=== PATIENT | female | born 1945 | race Caucasian/White ===

== ENCOUNTER 2016-10-14 09:04 | Day surgery (SDC) | payer MEDICARE, BC ==
[2016-10-14] VITALS (7 sets, daily range): BP systolic 135–189; BP diastolic 64–100; PULSE 57–97; RESP 14–19; TEMP 98.1–98.7; O2SAT 96–98; Ht 152.4 cm; Wt 80.7 kg
[~2016-10-14] VITALS: Ht 152.4 cm; Wt 80.7 kg
[~2016-10-14 09:04] MED LIST: AMLO10TA57 PO; ASCO250T6 PO; ATEN-36 PO; CA C1TAB89 PO CHEW; CETI10CA19 PO; HYDR12.54 PO; LOSA100T44 PO; MELA3TAB30 PO; MULT1CAP32 PO; TIZA4TAB4 PO; [UNRECOGNIZED DRUG - CODE] PO
--- OUTSIDE RECORDS SUMMARY | 2016-10-14 09:08 | XMS REPORT | Summary of Care ---
Author Author Anjum Barber M.D. Unknown Address [address] [place] [address] [place] [address] Phone Unavailable Care Team Providers Care Graduate Teaching Assistant Name Role Phone Gurjit Villafana PP Unavailable Functional Status Functional Status Health Issues* Name Dates Details Functional status health issues are not documented Status: Cognitive Status Health Issues* Name Dates Details Cognitive status health issues are not documented Status: Problems Name Dates Details UTI (urinary tract infection) (599.0, N39.0) Status: Active Hematuria (599.70, R31.9) Status: Active Frequent urination (788.41, R35.0) Status: Active OAB (overactive bladder) (596.51, N32.81) Status: Active Sensory urge incontinence (788.31, N39.41) Status: Active Stress incontinence, female (625.6, N39.3) Status: Active Meatal stenosis (598.9, N35.9) Status: Active Medications Name Dates Details Allergy Relief 10 MG Oral Tablet TAKE 1 TABLET DAILY. * Started 19-Apr-2015 ActiveLosartan Potassium 100 MG Oral Tablet TAKE 1 TABLET DAILY. * Refills: 0 * Started 19-Apr-2015 ActiveAtenolol 100 MG Oral Tablet TAKE 1 TABLET DAILY. * Refills: 0 * Started 19-Apr-2015 ActiveTraMADol HCl - 50 MG Oral Tablet * Refills: 0 * Started 19-Apr-2015 ActiveAmLODIPine Besylate 10 MG Oral Tablet TAKE 1 TABLET DAILY. * Refills: 0 * Started 19-Apr-2015 ActiveTiZANidine HCl - 4 MG Oral Tablet * Refills: 0 * Started 19-Apr-2015 Active Allergies and Adverse Reactions Name Dates Details Cipro Status: Active Crestor Status: Active Keflex Status: Active Lipitor Status: Active Past Medical History Name Dates Details History of arthritis (V13.4, Z87.39) Status: Resolved History of depression (V11.8, Z86.59) Status: Resolved History of esophageal reflux (V12.79, Z87.19) Status: Resolved History of hypertension (V12.59, Z86.79) Status: Resolved History of inflammatory bowel disease (V12.79, Z87.19) Status: Resolved History of Meniere's disease (386.00, H81.09) Status: Resolved History of recurrent urinary tract infection (V13.02, Z87.440) Status: Resolved Procedures Procedure Dates Details History of Hysterectomy History of Neck Surgery History of Knee Arthroscopy With Medial And Lateral Meniscus Repair History of Ear Surgery History of Cystoscopy (For Therapy) Procedures not documented Immunization Name Dates Details Immunizations not documented Family History Grandmother* Name Dates Details Family history of malignant neoplasm of uterus (V16.49, Z80.49) Status: Active Grandfather* Name Dates Details Family history of Colon cancer (153.9, C18.9) Status: Active Family history of liver cancer (V16.0, Z80.0) Status: Active aunt* Name Dates Details Family history of malignant neoplasm of breast (V16.3, Z80.3) Status: Active Mother* Name Dates Details Family history of hypertension (V17.49, Z82.49) Status: Active Family history of CAD (coronary artery disease) (414.00, I25.10) Status: Active Family history of lung cancer (V16.1, Z80.1) Status: Active Father* Name Dates Details Family history of Aneurysm (442.9, I72.9) Status: Active Social History Name Dates Details Smoking Status* Never smoker Vital Signs Date Test Result Details 01-May-2015 13:16 BP Systolic 130 mm[Hg] Status: BP Diastolic 68 mm[Hg] Status: Heart Rate 58 /min Status: Height 60 in Status: Weight 170 lb Status: Body Mass Index Calculated 33.2 kg/m2 Status: Body Surface Area Calculated 1.74 m2 Status: Results Date Description Value Details Results not documented Plan of Care Planned Observations* Name Dates Details Planned Goals not documented Goal Planned Encounters* Appointment; Provider: Anjum Barber On 30-Oct-2015 13:15 Instructions * Instructions not documented Encounters Appointment; Anjum Barber Encounter Diagnosis: Problem not documented On 01-May-2015 13:15
--- OUTSIDE RECORDS SUMMARY | 2016-10-14 09:08 | XMS REPORT | Summary of Care ---
Author Author Anjum Barber M.D. Unknown Address [address] [place] [address] [place] [address] Phone Unavailable Care Team Providers Care Dispatch Lead Name Role Phone Anjum Barber M.D. Unavailable Unavailable Gurjit Villafana PP Unavailable Unavailable Unavailable Functional Status Functional Status Health Issues* Name Dates Details Functional status health issues are not documented Status: Cognitive Status Health Issues* Name Dates Details Cognitive status health issues are not documented Status: Problems Name Dates Details UTI (urinary tract infection) (599.0, N39.0) Status: Active Hematuria (599.70, R31.9) Status: Active Frequent urination (788.41, R35.0) Status: Active Sensory urge incontinence (788.31, N39.41) Status: Active Stress incontinence, female (625.6, N39.3) Status: Active Meatal stenosis (598.9, N35.9) Status: Active 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 * Quantity: 1 Refills: 0 Anjum Barber M.D.* Started 06-May-2015 ActiveCelecoxib 200 MG Oral Capsule TAKE 1 CAPSULE DAILY. * Refills: 0 Anjum Barber M.D.* Started 30-Oct-2015 ActiveOmeprazole 20 MG Oral Capsule Delayed Release TAKE 1 CAPSULE DAILY. * Refills: 0 * Started 30-Oct-2015 ActiveVitamin C 500 MG Oral Capsule TAKE 1 CAPSULE DAILY. * Refills: 0 * Started 30-Oct-2015 ActivePrenatal 6.75-0.2 MG Oral Tablet * Refills: 0 * Started 30-Oct-2015 ActiveVitamin D3 1000 UNIT Oral Capsule TAKE DIRECTED. * Refills: 0 * Started 30-Oct-2015 ActiveMelatonin 10 MG Oral Capsule * Refills: 0 * Started 30-Oct-2015 Active Allergies and Adverse Reactions Name Dates [...] smoker Vital Signs Date Test Result Details 30-Oct-2015 12:59 BP Systolic 153 mm[Hg] Status: BP Diastolic 80 mm[Hg] Status: Heart Rate 53 /min Status: Height 60 in Status: Weight 170 lb Status: Body Mass Index Calculated 33.2 kg/m2 Status: Body Surface Area Calculated 1.74 m2 Status: Results Date Description Value Details Results not documented Plan of Care Planned Observations* Name Dates Details Planned Goals not documented Goal Planned Encounters* Appointment; Provider: Anjum Barber On 04-Nov-2016 13:00 Instructions * Instructions not documented Encounters Appointment; Anjum Barber Encounter Diagnosis: Problem not documented On 30-Oct-2015 13:15 Appointment; Anjum Barber Encounter Diagnosis: Problem not documented On 01-May-2015 13:15
--- OUTSIDE RECORDS SUMMARY | 2016-10-14 09:08 | XMS REPORT | Continuity of Care Document ---
Author Author [facility] Organization [facility] Address Unknown Phone Unavailable Support Name Relationship Address Phone CAS KEITA MD Caregiver [facility] [address] [place] [address] [address] [place] [address] ASHLEY MONTENEGRO DO Caregiver [facility] [address] [place] [address] [phone] MIRIAM QUINTANA Next Of Kin [address] [place] [address] Insurance Providers Payer Name Policy Number Subscriber Name Relationship Medicare [id number] Makenna Quintana 18 Self [employer] [facility] [id number] Makenna Quintana 18 Self Advance Directives Directive Response Recorded Date/Time Ordered Resuscitation Status Full Code, unverified 07/17/14 10:27am Resuscitation Documents on File No 07/17/14 9:42am Problems No known problems or medical conditions. Medications Medication Dose Route Sig Days/Qty Instructions Order Date Discontinued Date Status Atenolol 50 Mg PO AM AND PM 11/20/09 01/22/10 Discontinued Rosuvastatin Calcium 10 Mg PO DAILY 04/17/09 11/02/09 Discontinued Dicyclomine Hcl 20 Mg PO DAILY 11/20/09 01/22/10 Discontinued Hydrocodone Bit/Acetaminophen 1 Tab PO NEEDED 02/06/10 06/15/11 Discontinued Triamterene/Hydrochlorothiazid 1 Udtab PO NEEDED 11/02/09 Discontinued Tramadol Hcl 50 Mg PO TWICE A DAY 11/20/09 01/22/10 Discontinued Bupropion Hcl 150 Mg PO DAILY 04/17/09 11/02/09 Discontinued Cetirizine Hcl 10 Mg PO DAILY 11/20/09 01/22/10 Discontinued Meloxicam DAILY 11/20/09 01/22/10 Discontinued Aspirin DAILY 11/20/09 01/22/10 Discontinued Methocarbamol Every 6 Hours 11/20/09 01/22/10 Discontinued Tramadol Hcl 50 Mg PO EVERY 4-6 HOURS 02/06/10 Active Citalopram Hydrobromide 20 Mg PO DAILY 02/06/10 06/15/11 Discontinued Buspirone Hcl 5 Mg PO DAILY 02/06/10 06/15/11 Discontinued Atenolol 100 Mg PO DAILY 03/24/11 Active Methocarbamol 100 Mg IJ 03/24/11 06/15/11 Discontinued Omeprazole 20 Mg PO DAILY 06/15/11 Active Amlodipine Besylate 5 Mg PO DAILY 06/15/11 Active Tizanidine HCl 1 Tab PO THREE TIMES A DAY 90 Qty 07/17/14 Active Losartan Potassium 1 Tab PO DAILY 30 Qty 07/17/14 Active Hydrochlorothiazide 1 Tab PO DAILY 30 Qty 07/17/14 Active Multivitamin 1 Tab PO DAILY 07/17/14 Active Fish Oil/Borage/Flax/Om3,6,9#1 1 Tab PO DAILY 07/17/14 Active Social History Social History Problem Response Recorded Date/Time Chewing Tobacco Status No 07/17/2014 9:32am Hx Substance Use No 07/17/2014 9:32am Hx Alcohol Use No 07/17/2014 9:32am Has the pt used tobacco in the last 12 months No 07/17/2014 9:32am Query Response Start Date Stop Date Smoking Status Never smoker Hospital Discharge Instructions No hospital discharge instructions. Plan of Care No plan of care. Functional Status No functional status results. Allergies, Adverse Reactions, Alerts Allergen Type Severity Reaction Status Last Updated nalbuphine HCl Adverse Reaction Severe HIGH BP Active 06/15/11 ciprofloxacin HCl Allergy Intermediate RASH Active 01/22/10 Cephalexin Monohydrate Allergy Unknown Active 01/22/10 rosuvastatin calcium Allergy Unknown ACHY Active 07/17/14 Atorvastatin Allergy Unknown Active 07/17/14 Immunizations Name Given Type Hx Influenza Vaccination Y FALL 2013 Historical Hx Pneumococcal Vaccination No Historical Hx Influenza Vaccination Y FALL 2013 Historical Hx Tetanus Diptheria Y OCTOBER 2006 SHE THINKS Historical Vital Signs Acute Vital Signs Vital Response Date/Time Temperature (Fahrenheit) 96.9 deg F (96.8 - 99.1) Temperature (Calculated Celsius) 36.13784 degrees C (36.0 - 37.3) Temperature Source Temporal Pulse Rate (adult) 57 bpm (60 - 100) Respiratory Rate 16 breaths/min (10 - 20) O2 Sat by Pulse Oximetry 96 % (90 - 100) Oxygen Delivery Method Room Air Blood Pressure 122/57 mm Hg Blood Pressure Source Automatic Cuff Height 5 ft 0 in Weight 169 lb Body Mass Index 33.0 kg/m^2 Results Test Source Date Result Interp. Ref. Range Comments Activated Partial Thromboplast Time January 22, 2010 11:35am 26.8 SEC N 24- 36 Alanine Aminotransferase (ALT/SGPT) February 01, 2010 4:25am 68 U/L H 9-52 Albumin February 01, 2010 4:25am 3.26 G/DL L 3.5-5.0 Albumin/Globulin Ratio February 01, 2010 4:25am 1.0 RATIO L 1.1-2.2 Alkaline Phosphatase February 01, 2010 4:25am 125 U/L N 38-126 Anion Gap September 30, 2012 4:04pm 10 MEQ/L N 5-15 Aspartate Amino Transf (AST/SGOT) February 01, 2010 4:25am 54 U/L H 14-36 B-Type Natriuretic Peptide January 22, 2010 11:35am 96 PG/ML N 15-100 BUN/Creatinine Ratio September 30, 2012 4:04pm 21 RATIO N 6-26 Band Neutrophils # September 30, 2012 4:04pm 0.2 T/MM3 - Band Neutrophils % September 30, 2012 4:04pm 1.0 % N 0-6 Basophils # (Auto) November 20, 2009 10:00am 0.0 T/MM3 N 0-0.2 Basophils # (Manual) February 01, 2010 4:25am 0.0 T/MM3 N 0-0.2 Basophils % (Manual) February 01, 2010 4:25am 0.0 % N 0-2 Basophils (%) (Auto) November 20, 2009 10:00am 0.1 % N 0-2 Blood Urea Nitrogen September 30, 2012 4:04pm 21.0 MG/DL H 7-17 CSF Color January 22, 2010 1:00pm Colorless - CSF Glucose January 22, 2010 1:00pm 73 MG/DL H 40-70 CSF RBC January 22, 2010 1:00pm 1 /MM3 H 0-0 CSF Total Protein January 22, 2010 1:00pm 38 MG/DL N 12-60 CSF Turbidity January 22, 2010 1:00pm Clear - CSF WBC January 22, 2010 1:00pm 0 /MM3 N 0-5 CSF West Nile Virus IgM Antibody January 22, 2010 1:24pm Ref lab rpt scanned - --- 01/24/10 0909 ---[facility] previously reported as: SEND OUT Calcium Level September 30, 2012 4:04pm 10.1 MG/DL N 8.4-10.2 Calculated Osmolality September 30, 2012 4:04pm 278 MOSM/KG N 261-280 Carbon Dioxide Level September 30, 2012 4:04pm 28 MEQ/L N 22-30 Chloride Level September 30, 2012 4:04pm 104 MEQ/L N 98-107 Creatinine September 30, 2012 4:04pm 1.0 MG/DL N 0.7-1.2 Eosinophils # (Auto) November 20, 2009 10:00am 0.1 T/MM3 N 0-0.5 Eosinophils # (Manual) September 30, 2012 4:04pm 0.2 T/MM3 N 0-0.5 Eosinophils % (Manual) September 30, 2012 4:04pm 1.0 % N 0-4 Eosinophils (%) (Auto) November 20, 2009 10:00am 0.8 % N 0-4 Globulin February 01, 2010 4:25am 3.3 G/DL N 2.4-3.6 Glucose Level September 30, 2012 4:04pm 129 MG/DL H 65-110 Group B Streptococcus Antigen January 22, 2010 1:00pm Negative - Hematocrit September 30, 2012 4:04pm 40.6 % N 36-46 Hemoglobin September 30, 2012 4:04pm 13.4 GM/DL N 12-16 Influenza Type B Antigen January 22, 2010 1:00pm Negative - Lymphocytes # (Auto) November 20, 2009 10:00am 1.9 T/MM3 N 1-4.8 Lymphocytes # (Manual) September 30, 2012 4:04pm 1.1 T/MM3 N 1-4.8 Lymphocytes % (Manual) September 30, 2012 4:04pm 7.0 % L 23-45 Lymphocytes (%) (Auto) November 20, 2009 10:00am 14.6 % L 23-45 Magnesium Level January 22, 2010 11:35am 2.6 MG/DL H 1.6-2.3 Mean Corpuscular Hemoglobin September 30, 2012 4:04pm 31.2 UUG N 26-34 Mean Corpuscular Hemoglobin Concent September 30, 2012 4:04pm 33.0 GM/DL N 31-37 Mean Corpuscular Volume September 30, 2012 4:04pm 94.6 UM3 N 80-100 Mean Platelet Volume September 30, 2012 4:04pm 9.6 UM3 N 9.4-12.4 Metamyelocytes # September 30, 2012 4:04pm 0.2 T/MM3 - Metamyelocytes % September 30, 2012 4:04pm 1.0 % H 0-0 Monocytes # (Auto) November 20, 2009 10:00am 1.0 T/MM3 H 0-0.8 Monocytes # (Manual) September 30, 2012 4:04pm 0.5 T/MM3 N 0-0.8 Monocytes % (Manual) September 30, 2012 4:04pm 3.0 % N 0-9.0 Monocytes (%) (Auto) November 20, 2009 10:00am 7.9 % N 0-9.0 N. meningitidis B/E. coli K1 January 22, 2010 1:00pm Negative - N. meningitidis C/W 135 January 22, 2010 1:00pm Negative - Neutrophils # (Auto) November 20, 2009 10:00am 9.8 T/MM3 H 1.8-7.7 Neutrophils # (Manual) September 30, 2012 4:04pm 13.1 T/MM3 H 1.8-7.7 Neutrophils % (Manual) September 30, 2012 4:04pm 87.0 % H 33-66 Neutrophils (%) (Auto) November 20, 2009 10:00am 76.6 % H 33-66 Platelet Count September 30, 2012 4:04pm 328 T/MM3 N 130-400 Potassium Level September 30, 2012 4:04pm 5.0 MEQ/L N 3.6-5 Prothromb Time International Ratio January 22, 2010 11:35am 1.22 H 0.86- 1.10 THERAPUTIC RANGE=2.00-3.00 FOR ANTI-THROMBOSIS THERAPUTIC RANGE=2.50- 3.50 FOR IMPLANTED VALVE RDW Standard Deviation September 30, 2012 4:04pm 43.5 FL N 36.9-50.2 Red Blood Count September 30, 2012 4:04pm 4.29 M/MM3 N 4.00-5.20 Rickettsia Ab ([facility] Spot Fever) January 22, 2010 1:24pm Ref lab rpt scanned - --- 07/23/10 0909 ---HANANE previously reported as: SEND OUT Sodium Level September 30, 2012 4:04pm 142 MEQ/L N 134-144 Streptococcus pneumoniae Antigen January 22, 2010 1:00pm Negative - Total Bilirubin February 01, 2010 4:25am 0.44 MG/DL N 0.20-1.30 Total Protein February 01, 2010 4:25am 6.6 G/DL N 6.3-8.2 Troponin I January 22, 2010 11:35am 0.123 ng/ml PH 0-0.12 Urine Amorphous Urates January 22, 2010 11:45am Few - Has specimen been collected/obtained? Y Urine Bacteria March 26, 2010 3:44pm 3+ H - Urine Bilirubin March 26, 2010 3:44pm Negative - Urine Blood March 26, 2010 3:44pm 2+ H - Urine Coarse Granular Casts January 22, 2010 11:45am 20-30 /LPF - Has specimen been collected/obtained? Y Urine Collection Type January 31, 2010 8:15pm Voided - COMMENT C/S INDICATEDHas specimen been collected/obtained? Y Urine Color March 26, 2010 3:44pm Yellow - Urine Culture Indicated March 26, 2010 3:44pm Cult set up - Urine Glucose (UA) March 26, 2010 3:44pm Negative - Urine Ketones March 26, 2010 3:44pm Negative - Urine Leukocyte Esterase March 26, 2010 3:44pm 1+ H - Urine Nitrite March 26, 2010 3:44pm Negative - Urine Protein March 26, 2010 3:44pm Trace H - Urine RBC March 26, 2010 3:44pm 5-10 /HPF H - Urine Specific Currie March 26, 2010 3:44pm 1.020 - Urine Squamous Epithelial Cells January 31, 2010 8:15pm Moderate - COMMENT C/S INDICATEDHas specimen been collected/obtained? Y Urine Turbidity March 26, 2010 3:44pm Slt cldy - Urine Urobilinogen March 26, 2010 3:44pm Normal EU/DL - Urine WBC March 26, 2010 3:44pm 10-20 /HPF H - Urine Yeast January 31, 2010 8:15pm 1+ H - COMMENT C/S INDICATEDHas specimen been collected/obtained? Y Urine pH March 26, 2010 3:44pm 6.0 - White Blood Count September 30, 2012 4:04pm 15.1 T/MM3 H 4.5-11.0 West Nile Virus IgG/IgM Antibody January 22, 2010 1:24pm Ref lab rpt scanned - --- 01/24/10908 ---WE[facility] previously reported as: SEND OUT Neisseria meningitidis A/Y Antigen January 22, 2010 1:00pm Negative - Lab Scanned Report September 30, 2012 11:14pm LAB TEST FORM REQUEST [id number] - EKG June 16, 2008 9:06am Complete - Glomerular Filtration Rate Calc September 30, 2012 4:04pm 55 - Clostridium difficile Toxin (PCR) February 03, 2010 12:00am Negative - If Toxin A is clinically indicated, treat accordingly. Blood Culture Blood January 22, 2010 11:35am NO GROWTH AFTER 5 DAYS Gram Stain Cerebral Spinal Fluid January 22, 2010 1:00pm Urine Culture Urine, Clean Catch Voided March 26, 2010 5:00pm Alpha- Hemolytic Streptococcus Name: MAKENNA QUINTANA Unit #: [id number] : 1945 Sex: F Loc / Svc: ED DOS: 01/22/10 Signed Report #: [id number] DIAGNOSTIC IMAGING REPORT TYPE OF EXAM: CT HEAD W/O CONTRAST Dictated By: BERENICE HILL MD COMPARISON None PROCEDURE Noncontrasted images were made from the base of the skull through the vertex and reviewed in brain and bone windows. FINDINGS Examination demonstrates what appears to be prior surgery in the right mastoid. There is opacification of some of the air cells in the left mastoid. Paranasal sinuses appear unremarkable. No bone erosion is seen. Orbits appear normal. Intracranially, the ventricular system is normal. Sulci show no abnormality. No mass effect. No intracranial hemorrhage. There is a small lacunar infarct in the left internal capsule. Age of this is indeterminate. IMPRESSION 1. Small left lacunar infarct. 2. Prior right mastoidectomy. 3. Changes suggesting mastoiditis on the left. Report was called to the emergency room at the time of dictation. Procedures Procedure Status Date Provider(s) Cataract surgery completed 07/18/14 CAS KEITA MD Encounters Encounter Location Date/Time Registered Clinic 04/30/14 2:56pm Departed Emergency Room 01/22/10 10:50am
--- OUTSIDE RECORDS SUMMARY | 2016-10-14 09:08 | XMS REPORT | Summary of Care ---
Author Author Anjum Barber M.D. Unknown Address [address] [place] [address] [place] [address] Phone Unavailable Care Team Providers Care Electromechanical Equipment Assembler Name Role Phone Gurjit Villafana PP Unavailable [...]
[2016-10-14] MEDS: PHENYLEPHRINE 2.5% EYE DROPS 5ml RIGHT EYE SCH ×3 (09:57→10:14)
[2016-10-14] MEDS: LIDOCAINE 1% (10mg/ml) 2ml SDV INJ ONE ×2 (09:57→10:32)
[2016-10-14] MEDS: CYCLOPENTOLATE 1% EYE DROPS 2 ML BOTTLE RIGHT EYE SCH ×3 (09:58→10:14)
[2016-10-14] MEDS: POLYMYXIN B SULFATE/TRIMETHOPRIM EYE DROPS 10 ML BOTTLE RIGHT EYE PRN ×3 (09:58→10:14)
[2016-10-14] MEDS: TROPICAMIDE 1% EYE DROPS 3ml RIGHT EYE SCH ×3 (09:58→10:14)
--- NOTE | 2016-10-14 10:03 | ANESPREOP ---
Anesthesia Record Date and Time DATE: 10/14/16 TIME: 09:59 Pre-Op Diagnosis right eye cataract Proposed Surgical Procedure CATARACT EXTRACTION WITH IOL OD NPO since: mn Allergies: Coded Allergies: ciprofloxacin HCl (Verified Allergy, Intermediate, RASH, 10/14/16) Cephalexin Monohydrate (Verified Allergy, Unknown, 10/14/16) atorvastatin (Unverified Allergy, Unknown, 10/14/16) rosuvastatin calcium (Verified Allergy, Unknown, ACHY, 10/14/16) nalbuphine HCl (Verified Adverse Reaction, Severe, HIGH BP, 10/14/16) Ht/Wt/BMI Height: 5 ' 0.00 " Weight: 80.700 kg BMI: 34.8 kg/m2 Vital Signs Date Time Temp Pulse Resp B/P Pulse Ox O2 Delivery O2 Flow Rate FiO2 10/14/16 09:24 98.7 57 16 164/79 97 Room Air Medications Inpatient Medications Current Medications Medications (Trade) Dose Ordered Sig/Jamie Start Time Stop Time Status Last Admin Dose Admin Cyclopentolate HCl (Cyclate 1%) 1 drop Q5M 10/14/16 17:00 10/14/16 17:11 10/14/16 09:58 1 DROP Tropicamide (Mydriacyl 1% Eye Drops) 1 drop Q5M 10/14/16 17:00 10/14/16 17:11 10/14/16 09:58 1 DROP Phenylephrine HCl (Simon-Synephrine 2.5% Eye Drops) 1 drop Q5M 10/14/16 17:00 10/14/16 17:11 10/14/16 09:57 1 DROP Polymyxin/ Trimethoprim Sulfate (Polytrim Eye Drops) 1 drop Q5MIN PRN 10/14/16 10:00 UNV 10/14/16 09:58 1 DROP Amlodipine Besylate (Norvasc) 10 Mg Tablet, 5 MG PO DAILY, (Reported) Ascorbic Acid (Vitamin C) 250 Mg Tab.chew, 2 TAB PO DAILY, (Reported) Atenolol (Atenolol) 25 Mg Tablet, 1 TAB PO DAILY, (Reported) Ca Carbonate/Vitamin D3/Vit K (Calcium + D Soft Chewable Tab) 1 Each Tab.chew, 2 TAB PO CHEW DAILY, (Reported) Cetirizine HCl (Zyrtec) 10 Mg Capsule, 1 CAP PO DAILY, (Reported) Hydrochlorothiazide (Hydrochlorothiazide) 12.5 Mg Tablet, 1 TAB PO DAILY, ( Reported) Losartan Potassium (Losartan Potassium) 100 Mg Tablet, 1 TAB PO DAILY, (Reported ) Melatonin (Melatonin) 3 Mg Tablet, 1 TAB PO HS, (Reported) Multivitamin (Multivitamins) 1 Each Capsule, 1 TAB PO DAILY, (Reported) Tizanidine HCl (Tizanidine HCl) 4 Mg Tablet, 1 TAB PO TID, (Reported) Tramadol Hcl (Ultram Er) 200 Mg Tab.sr.24h, 50 MG PO Q4-6H, (Reported) Currently on Beta Carlos: Yes Beta Carlos Last Taken: 0800 this am Medical/Surgical History Anesthesia PMH: Reports: *Hypertension, Arthritis, Pneumonia (2010), Reflux ( RESOLVED ), Denies: *Angina, *Diabetes, *Dyspnea, *CA, Anesthesia Reactions (NO AIRWAY ISSUES), Asthma, Blood Transfusion Reac, CHF, COPD, CVA/Stroke/TIA, Cancer, Clotting Problems, Deep Vein Thrombosis, Glaucoma, Headaches, Hepatitis , Hiatal Hernia, Malignant Hyperthermia, Renal Disease, Rheumatic Fever, Seizures, Sleep Apnea, Thyroid Disease, Tuberculosis Smoking Status: Never smoker Has pt. smoked today?: No Use Chewing Tobacco?: No Second Hand Exposure: No Substance Use Type: does not use Alcohol Intake: none HX of Last Menstrual Period: HYST. Past Surgical History Orthopedic Surgeries: Yes - CTR, NISHI.KNEE SCOPE, BACK SURGERY, NECK FUSION Abdominal Surgeries: - HYSTERECTOMY Genitourinary Surgeries: Cardiac Surgeries: Endocrine Surgeries: Reproductive Surgeries: Yes - HYSTERECTOMY; D&C Neurological Surgeries: Ear Surgeries: Yes - X3 SHUNTS FOR EAR Nose Surgeries: Throat Surgeries: Other Surgeries: Yes - NECK FUSION 4-5 Anesthesia Adverse Reactions: FOUND none Family Hx of Anesthesia Advers: none Hx of Motion Sickness: No Pertinent Findings EKG Rhythm: Sinus Rhythm Physical Exam Respiratory: Bilat breath sounds equal, Lungs clear Cardiovascular: FOUND Regular rate, rhythm Airway Assessment Mallampati Score: II TMD: 3 Fingerbreadths Overall Assessment: No Airway Concerns ASA: 2 Plan Anesthesia Plan: MAC Discussion Discussed risks/options/alternatives of anesthesia and questions answered. Patient consents. Nursing pain assessment noted. Attestation Statement Prior to the delivery of any anesthetic medication, I examined the patient, developed the plan, obtained the patient's consent and discussed the risk and benefits of the procedure with the patient/guardian. FLOYD JACKSON CRNA Oct 14, 2016 10:03
[2016-10-14] MEDS ORDERED: MIDAZOLAM 2mg/2ml INJECTION ONE (11:12)
[2016-10-14] MEDS ORDERED: SALINE FLUSH 10ml SYRINGE ONE ×2 (11:12→11:25)
[2016-10-14] MEDS ORDERED: METOPROLOL 5mg/5ml INJECTION IV ONE (11:25)
--- NOTE | 2016-10-14 12:07 | NUR ---
HEART RATE CONTACT PERSON REPORTS HEART WENT INTO RAPID RATE OFF AND ON IN OR. EKG HOOKED UP TO TRY TO CATCH RAPID HEART RATE.
--- NOTE | 2016-10-14 12:13 | NUR ---
HEART RATE GARMENT PARTS CUTTER MACHINE OBSERVES HEART RATE-EKG DONE. NO RAPID HEART RATE AT THIS POINT
--- NOTE | 2016-10-14 12:27 | ANESPO ---
Post-Op Note Date 10/14/16 Time: 12:21 Status Pt Participated in Evaluation: Pt participated in person Vital Signs Date Time Temp Pulse Resp B/P Pulse Ox O2 Delivery O2 Flow Rate FiO2 10/14/16 12:00 98.1 80 16 189/90 98 Room Air Respiratory Function: Airway patent Cardiovascular Function: Regular pulse Telemetry Pattern: Afib Mental Status: Alert/oriented Pain Level Intensity: 0 Hydration: IV infusing Complications during Recovery None apparent Post-Anesthesia Notes New onset AFIB with runs of PVC's EKG done in SCU. called and talked to Dr. Villafana to see patient in office at 1330. Follow-Up Instructions Instructions Per Surgeon JENNIFER PIERCE CRNA Oct 14, 2016 12:25
--- NOTE | 2016-10-14 12:32 | NUR ---
HEART RATE SUPERVISOR [employer] VISITS W PT AND PT'S ABOUT HEART RATE. PT WILL GO TO DR MONTENEGRO'S OFFICE AT 1:30. WILL WATCH HER HERE UNTIL THEN.
--- NOTE | 2016-10-14 12:50 | NUR ---
DISMISSAL PT STAYING TO BE OBSERVED FOR CARDIAC RYTHYMS UNTIL HER DR APPT AT 1330. PT DENIES ANY CHEST, BACK OR ARM DISCOMFORT. HAD A HEADACHE WHICH IS RESOLVING AFTER EATING.
[2016-10-14] MEDS ORDERED: ACETYLCHOLINE (MIOCHOL-E) OCULAR SYSTEM IO ONE (16:17)
[2016-10-14] MEDS ORDERED: EPINEPHRINE 1mg/ml Pres.Free vl IO ONE (16:17)
[2016-10-14] MEDS ORDERED: BRIMONIDINE 0.2% EYE DROPS 5ml BOTH EYES ONE (16:17)
[2016-10-14] MEDS ORDERED: NS FOR INJ. 20 ML VIAL INJ ONE (16:19)
[2016-10-14] MEDS ORDERED: PrednisoLONE 1% EYE DROPS 5ml RIGHT EYE ONE (16:19)
[2016-10-14] MEDS ORDERED: PILOCARPINE 2% RIGHT EYE ONE (16:19)
[2016-10-14] MEDS ORDERED: TETRACAINE 0.5% EYE DROPS 4ml BOTTLE OP ONE (16:19)
[2016-10-14] MEDS ORDERED: LIDOCAINE 1% (10mg/ml) 30ml SDV IJ ONE (16:19)
[2016-10-14] MEDS ORDERED: VANCOMYCIN 500 MG INJECTION IO ONE (16:19)
[2016-10-14] MEDS ORDERED: LIDOCAINE 3.5% EYE GEL PF 1ml OP ONE (17:00)
--- NOTE | 2016-10-15 23:04 | OPNOTEF ---
DATE OF OPERATION 10/14/2016 PREOPERATIVE AND POSTOPERATIVE DIAGNOSES Visually significant cataract, right eye. PROCEDURE Cataract extraction by phacoemulsification with insertion of posterior chamber intraocular lens, right eye. SURGEON Lazarus Tang M.D. DESCRIPTION OF PROCEDURE The patient was given topical ophthalmic dilating drops, 2.5% phenylephrine, 1% tropicamide, 1% Cyclopentolate, topical antibiotic drops Zymaxid and topical 2% Xylocaine gel q. 5 minutes x 3 prior to arrival to the OR into the right eye. In the OR, the area about the right eye was prepped and draped in the usual sterile fashion with topical Betadine and 5% Betadine eyedrops into the right eye. The procedure began and was done entirely under the operating microscope. A sterile lid speculum was placed into the right eye and removed at the end of the procedure. Using a 1.2-mm blade, two paracentesis side ports were made approximately 180 degrees apart. 1% preservative-free lidocaine was instilled into the eye followed by Viscoat. Using a 2.4-mm keratome, a temporal clear corneal incision was made. Using a cystotome and capsular rhexis forceps, an anterior capsulotomy was made. The lens nucleus was then loosened from surrounding cortical material by hydrodissection. The phacoemulsification handpiece was then introduced into the eye and the lens nucleus was successfully phacoemulsified using 14.24 CDE units of phacoemulsification power. Hydrodissection was done again to loosen cortical material from the capsule and the irrigation/aspiration handpieces were used to strip away all cortical material. The eye was then filled with Provisc and a Hoya lens, model #250, with a power of 19.0 diopters was inserted into the capsular bag of the right eye and centered. Viscoelastic was removed with the irrigation/aspiration handpieces. Then Miocol was instilled into the eye and the pupil came down to approximately 5.5 mm. This patient had very widely dilated pupil and some posterior pressure since apparently her blood pressure had gone up. The lens was noted to be in the capsular bag properly centered and located behind the iris. 1 mg of vancomycin was dissolved in 0.1 cc of normal saline and it was instilled into the eye. Incisions were hydrated to seal them, were tested, and noted to be watertight. Drops of Zymaxid, Pred Forte and Brimonidine were dropped onto the right eye and a shield taped over the eye, completing the procedure. Blood loss was minimal, less than 0.1 cc. There were no complications. The patient left the operating room in good condition. GARETH
== END 2016-10-14 13:24 | disposition home or self-care (01) ==
LOC: NSC 09:04
PROVIDERS: ATTEND Ophthalmology
DX: H25.811 Combined forms of age-related cataract, right eye (principal); I10 Essential (primary) hypertension; E78.00 Pure hypercholesterolemia, unspecified; M19.90 Unspecified osteoarthritis, unspecified site; H81.09 Meniere's disease, unspecified ear; Z79.899 Other long term (current) drug therapy; Z79.1 Long term (current) use of non-steroidal anti-inflammatories (NSAID); Z88.1 Allergy status to other antibiotic agents; Z88.8 Allergy status to other drugs, medicaments and biological substances; Z90.710 Acquired absence of both cervix and uterus
CPT/HCPCS: 66984; 93005; A9270; C1780; J0171; J2250; J3370

== ENCOUNTER 2017-10-05 13:56 | Inpatient (IN) ==
[2017-10-05] MEDS ORDERED: CEFTRIAXONE 1 G in NS 100 ML IV ONE (14:30)
[2017-10-05] MEDS: NS 1,000 ML IV SCH ×3 (16:16→19:50)
--- NOTE | 2017-10-05 17:37 | Internal Med History&Physical ---
Internal Medicine HPI Chief complaint: fever and lethargy with leukocytosis History of present illness: Makenna Flynn is a pleasant 72-year-old white female patient that I am well familiar with from my office practice. Usually she has no trouble walking or conversing or doing any of her activities of daily living. Her most recent lab was drawn through our office demonstrated dehydration. She called this morning needing to be seen due to her fever as well as significant weakness and chest discomfort. At that time she was indeed found to be dehydrated and also we noted that her white count was significantly elevated. At that point it was decided that she would be a direct admit for 23 hour observation with IV fluid hydration, antibiotics, and septic workup. Review of Systems - Constitutional Constitutional: Present: chills, daytime sleepiness, fatigue, fever(s), lethargy , malaise, weakness - Cardiovascular Cardiovascular: Present: chest pain, dyspnea on exertion. Absent: syncope - Respiratory Respiratory: Present: cough, dyspnea, dyspnea on exertion, chest congestion - Gastrointestinal Gastrointestinal: Absent: abdominal pain, change in bowel habits, coffee ground emesis, constipation, diarrhea, dyspepsia, dysphagia, early satiety - Genitourinary Genitourinary: Present: difficulty urinating - Musculoskeletal Musculoskeletal: Present: arthralgias, back pain, muscle weakness, myalgias - Neurological Neurological: Present: confusion. Absent: frequent falls, radicular pain, tremor(s) - Hematologic/Lymphatic Hematologic/Lymphatic: Absent: easy bleeding, easy bruising, lymphadenopathy - Allergic/Immunologic Allergic/Immunologic: Absent: tongue swelling, itchy eyes, seasonal rhinorrhea, urticaria PFSH Patient Stated Medical History Cataracts Yes: both Hearing Loss Yes Hypertension Yes Pneumonia Yes: twice in the past Hx Urinary Tract Infection Yes: past Other Musculoskeletal Yes: arthritis Clinic Medical History (Last Reviewed 02/01/17 @ 16:07 by Vicente Villafuerte MD) Arthritis (Acute Medical) Bleeding disorder (Acute Medical) Cataract (Acute Medical) High blood pressure (Acute Medical) High cholesterol (Acute Medical) Pneumonia (Acute Medical) Surgical History: Hysterectomy 1969, Neck (Spine) 1992, Carpal Tunnel 1998, Ear Shunt, Meniscus Knee, Family History: Family History (Last Reviewed 02/01/17 @ 16:07 by Vicente Villafuerte MD) Mother Cancer of lung Arthritis Father Aneurysm Maternal Grandmother Ovarian cancer Paternal Grandfather Heart failure - Social History Smoking status: Never smoker Substance use type: does not use Alcohol intake frequency: does not drink Household members: spouse Current occupational status: retired Medications Home Medications Medication Instructions Recorded Confirmed Type Tramadol Hcl (Ultram Er) 50 mg PO Q4-6H #0 02/06/10 10/05/17 History Amlodipine Besylate 5 mg PO BID #0 06/15/11 10/05/17 History Losartan Potassium 1 tab PO DAILY #30 07/17/14 10/05/17 History Tizanidine HCl 1 tab PO BID #90 07/17/14 10/05/17 History Tenormin (atenolol) 100 mg tablet 100 mg PO BID tab 02/01/17 10/05/17 History Allergies Allergy/AdvReac Type Severity Reaction Status Date / Time atorvastatin Allergy Unknown Verified 10/05/17 15:19 ciprofloxacin HCl Allergy Intermediate RASH Uncoded 10/05/17 15:19 Cephalexin Monohydrate Allergy Unknown Uncoded 10/05/17 15:19 rosuvastatin calcium Allergy Unknown ACHY Uncoded 10/05/17 15:19 nalbuphine HCl AdvReac Severe HIGH BP Uncoded 10/05/17 15:19 Exam Vital signs: Temperature 96.7 F L 10/05/17 14:07 Pulse Rate 73 10/05/17 14:07 Respiratory Rate 18 10/05/17 14:07 Blood Pressure 167/72 H 10/05/17 14:07 Pulse Oximetry 97 10/05/17 14:07 - Constitutional moderate distress, obese, disheveled, cooperative - Routine HEENT Exam Head: Present: normocephalic, atraumatic Eye: Present: EOMI, PERRL, conjunctivae pink. Absent: conjunctival icterus ENT: Present: oropharynx clear, nares patent. Absent: mucous membranes moist Nose: dry mucous membranes - Routine Neck Exam Present: supple. Absent: JVD, carotid bruit - Routine Chest/Breast/Axilla Exam Chest wall: Present: tenderness Axillae: Absent: lymphadenopathy - Routine Respiratory Exam Absent: accessory muscle use, CTA bilaterally - Routine Cardiovascular Exam Present: RRR, no murmur. Absent: S3, S4 - Routine Abdominal Exam Present: soft, normoactive bowel sounds, non distended, non tender. Absent: rebound, guarding, rigid - Routine Extremities Exam Absent: cyanosis, clubbing, edema - Routine Skin Exam Present: intact. Absent: cyanosis, erythema, mottling, petechiae, urticaria, jaundice - Routine Neurological Exam Present: oriented X3, CN II-XII intact. Absent: alert - Routine Psychiatric Exam Present: cooperative. Absent: normal affect Internal Medicine Results - Labs CBC & Chem 7: 10/05/17 15:10 10/05/17 15:10 Labs: Short CBC 10/05/17 Range/Units 15:10 WBC 18.1 H (4.5-11.0) T/MM3 Hgb 13.7 (12-16) GM/DL Hct 41.0 (36-46) % Plt Count 408 H (130-400) T/MM3 BMP 10/05/17 15:10 Sodium 140 Potassium 4.2 Chloride 99 Carbon Dioxide 27 BUN 43.0 H Creatinine 1.1 D Glucose 112 H Calcium 11.0 H Cardiac Enzymes 10/05/17 Range/Units 15:10 Total Creatine Kinase < 20 L (30-135) U/L Troponin I < 0.012 (0-0.12) ng/ml Liver Function 10/05/17 Range/Units 15:10 Total Bilirubin 0.60 (0.20-1.30) MG/DL AST 29 (14-36) U/L ALT 39 H (1-35) U/L Alkaline Phosphatase 118 (38-126) U/L Albumin 3.9 (3.5-5.0) g/dL Assessment and Plan - Assessment and Plan (1) Dehydration Current visit: Yes Status: Acute (2) Febrile illness, acute Current visit: Yes Status: Acute (3) Chest pain Current visit: Yes Status: Acute (4) Weakness Current visit: Yes Status: Acute (5) Hypertension Current visit: Yes Status: Acute (6) Arthralgia Current visit: Yes Status: Acute Septic workup initiated also including troponin and CPK. Chest x-ray along with acute abdominal series obtained and pending. I will also obtain a respiratory pathogens panel. Incidentally, her calcium levels elevated so I will check a parathyroid hormone and parathyroid-like related peptide
[2017-10-05] MEDS: FentaNYL 100 MCG/2 ML INJECTION IVP PRN (21:35)
[2017-10-05] MEDS: ATENOLOL 50 MG TABLET PO SCH (21:36)
[2017-10-05] MEDS: LOVASTATIN 20 MG TABLET PO SCH (21:36)
[2017-10-06] MEDS: FentaNYL 100 MCG/2 ML INJECTION IVP PRN ×5 (02:49→20:23)
[2017-10-06] MEDS: NS 1,000 ML IV SCH ×3 (04:00→20:32)
--- NOTE | 2017-10-06 08:08 | XRay Report ---
INDICATION: DEHYDRATION PROCEDURE: CHEST 2-VIEWS UPRIGHT (PA & LAT) Encounter: Initial COMPARISON: November 10, 2010 FINDINGS: The lungs are clear without evidence of focal abnormal airspace opacity. There is no pleural effusion or pneumothorax. The heart size, mediastinal contours and pulmonary vascularity are within normal limits. There is no significant skeletal abnormality. IMPRESSION: No acute cardiopulmonary disease. .
[2017-10-06] MEDS: LOSARTAN 100 MG TABLET PO SCH (08:18)
[2017-10-06] MEDS: AMLODIPINE 10 MG TABLET PO SCH (08:18)
[2017-10-06] MEDS: ASPIRIN 81 MG CHEWABLE TABLET PO SCH (08:18)
[2017-10-06] MEDS: ATENOLOL 50 MG TABLET PO SCH ×2 (08:18→20:24)
--- NOTE | 2017-10-06 08:38 | XRay Report ---
Indication: NAUSEA PROCEDURE: XR abdomen 2V: Encounter: Initial Comparison: None Findings: The visualized lung bases are clear. There is no free air on the upright view. The bowel gas pattern is nonobstructive and nonspecific. Gas is seen in nondilated small and large bowel to the level of the rectum. Large amount of stool is seen throughout the colon. Impression: Nonobstructive nonspecific bowel gas pattern. Increased colonic stool burden suggesting constipation. .
--- NOTE | 2017-10-06 10:29 | Ultrasound Report ---
Indication: ELEVATED PTH AND CALCIUM LEVELS PROCEDURE: US thyroid: Encounter: Initial Comparison: None Technique: Grayscale and color Doppler sonographic imaging of the thyroid gland was performed. Findings: The right thyroid lobe shows an isoechoic 6 x 5 x 4 mm nodule in the superior portion without microcalcifications or concerning features. There is an additional adjacent similar appearing slightly more hypoechoic nodule measuring 8 x 6 x 6 mm, also without microcalcifications. The left thyroid lobe shows a small slightly hypoechoic nodule in the inferior pole measuring 8 x 4 x 6 mm without microcalcifications or concerning features. Thyroid isthmus is normal measuring 0.2 cm in diameter. Normal Doppler flow to both thyroid lobes. Right lobe measures 3.3 x 1.8 x 1.6 cm. The left lobe measures 3.6 x 1.6 x 1.4 cm. Impression: Bilateral subcentimeter thyroid nodules, likely of minimal clinical significance. No parathyroid adenoma visible by ultrasound. .
[2017-10-06] MEDS ORDERED: ONDANSETRON 4 MG/2 ML INJECTION IVP PRN (17:23)
[2017-10-06] MEDS ORDERED: PROMETHAZINE 25 MG INJECTION IVP PRN (17:24)
--- NOTE | 2017-10-06 17:45 | Internal Med Progress Note ---
Internal Medicine Subjective Patient seen and examined in her room. Family at the bedside. Questions answered. Makenna still has significant left lower chest and rib pain today. She also has nausea and early satiety. She has lost over 20 pounds in the last 2 months. She continues to be quite lethargic. She still has some thoracic back pain but this has been improved greatly with 2 epidural steroid injections prior to admission. I reviewed the CT of the chest abdomen and pelvis with the patient and her family this evening. Cardiac enzymes were negative as was her lipase. Her calcium on admit was elevated so a PTH and PTH related protein were both drawn. The PTH was mildly elevated. Ultrasound of the thyroid and parathyroid today was relatively normal. Exam Vital Signs: Temperature 98.8 F 10/06/17 16:00 Pulse Rate 75 10/06/17 16:00 Respiratory Rate 18 10/06/17 16:00 Blood Pressure 141/74 H 10/06/17 16:00 Pulse Oximetry 98 10/06/17 16:00 Telemetry Rhythm: Sinus Rhythm Height/Weight/BMI: Height 5 ft Weight 70.1 kg Body Mass Index 30.7 - Constitutional Present: mild distress, obese, cooperative - Routine HEENT Exam Head: Present: normocephalic, atraumatic Eye: Present: EOMI, conjunctivae pink. Absent: conjunctival icterus, scleral injection ENT: Present: mucous membranes moist, oropharynx clear, nares patent - Routine Neck Exam Present: supple. Absent: JVD, carotid bruit, lymphadenopathy, thyromegaly - Routine Chest/Breast/Axilla Exam Chest wall: Present: tenderness (left lower chest) Axillae: Absent: lymphadenopathy - Routine Respiratory Exam Present: CTA bilaterally. Absent: accessory muscle use - Routine Cardiovascular Exam Present: RRR, no murmur. Absent: S3, S4 - Routine Abdominal Exam Present: soft, normoactive bowel sounds, non distended, non tender - Routine Extremities Exam Absent: cyanosis, clubbing, edema - Routine Back/Spine/Pelvis Exam Back/Spine: Present: kyphosis - Routine Skin Exam Present: intact. Absent: cyanosis, erythema, mottling, petechiae, urticaria, jaundice - Routine Neurological Exam Present: oriented X3, CN II-XII intact. Absent: alert - Routine Psychiatric Exam Absent: normal affect (quite fatigued) Internal Medicine Results - Labs CBC & Chem 7: 10/06/17 04:00 10/06/17 04:00 Labs: Short CBC 10/06/17 Range/Units 04:00 WBC 18.5 H (4.5-11.0) T/MM3 Hgb 12.4 (12-16) GM/DL Hct 37.0 (36-46) % Plt Count 354 (130-400) T/MM3 BMP 10/06/17 10/06/17 04:00 04:00 Sodium 138 Potassium 3.8 Chloride 103 Carbon Dioxide 25 BUN 25.0 H Creatinine 0.9 D Glucose 112 H Calcium 9.1 D 9.4 Liver Function 10/06/17 Range/Units 04:00 Albumin 3.4 L (3.5-5.0) g/dL Urine 10/05/17 Range/Units 15:10 Urine Color Yellow (YELLOW) Urine Clarity Clear Urine pH 7.0 (5.0-8.0) Ur Specific [place] 1.010 L (1.015-1.025) Urine Protein Negative (NEGATIVE) Urine Glucose (UA) Negative (NEGATIVE) Progress Note-A&P - Time Spent With Patient Total time spent is greater than 50% in coordination of care (as documented) at patient's floor/unit and/or counseling patient: greater than 35 minutes (1) Dehydration Status: Acute Current Visit: Yes (2) Febrile illness, acute Status: Acute Current Visit: Yes (3) Chest pain Status: Acute Current Visit: Yes (4) Weakness Status: Acute Current Visit: Yes (5) Hypertension Status: Acute Current Visit: Yes (6) Arthralgia Status: Acute Current Visit: Yes (7) Hypercalcemia Status: Acute Current Visit: Yes (8) Rib pain on left side Status: Acute Current Visit: Yes (9) Right upper quadrant pain Status: Acute Current Visit: Yes (10) Nausea & vomiting Status: Acute Current Visit: Yes (11) Unintentional weight loss of more than 10 pounds Status: Acute Current Visit: Yes - Assessment and Plan Initially, I have great concern with the patient that has hypercalcemia and unintentional weight loss of over 20 pounds. Some epithelial derived malignancy , myeloma, or sarcoidosis could be the cause. She also has early satiety right and left upper quadrant abdominal tenderness so I will order abdominal ultrasound as well as a left rib series. Hospital Course Summary Disclaimer: The visit summary below is not to be considered part of the above Progress Note.
[2017-10-06] MEDS: CEFTRIAXONE 1 G in NS 100 ML IV SCH (18:20)
[2017-10-06] MEDS: LOVASTATIN 20 MG TABLET PO SCH (20:24)
[2017-10-06] MEDS ORDERED: ZOLPIDEM 10 MG TABLET PO ONE (21:00)
[2017-10-07] MEDS: NS 1,000 ML IV SCH ×5 (04:36→20:31)
[2017-10-07] MEDS: FentaNYL 100 MCG/2 ML INJECTION IVP PRN ×2 (05:03→18:01)
--- NOTE | 2017-10-07 08:27 | Ultrasound Report ---
Indication: RUQ LUQ PAIN PROCEDURE: US abdomen complete: Encounter: Initial Comparison: None Technique: Grayscale and color Doppler sonographic imaging of the abdomen was performed. Findings: Hepatic parenchyma is homogeneous without evidence for focal mass. The gallbladder is normal. There is no wall thickening, pericholecystic fluid, sonographic Singh's sign or cholelithiasis. Both the intra and extrahepatic biliary system are of normal caliber with the common duct measuring 2 mm in dimension. Pancreas is not seen due to shadowing bowel gas. Both kidneys are present without collecting system dilatation. The right measures 9.5 cm in length and left measures 10.3 cm. The spleen is unremarkable. The visualized portions of the aorta and IVC are unremarkable. No free fluid. Impression: Negative abdominal sonogram. There is a preliminary report by virtual radiologic. .
--- NOTE | 2017-10-07 08:29 | XRay Report ---
Indication: Left Rib Pain PROCEDURE: XR ribs LT min 3V w CXR1V: Encounter: Initial Comparison: October 05, 2017 FINDINGS: Chest: The lungs are clear. There is no abnormal airspace opacity, pleural effusion or pneumothorax identified. The heart size, pulmonary vasculature and mediastinum are within normal limits. AP and oblique views of the left ribs: No displaced rib fracture is seen. IMPRESSION: No acute cardiopulmonary abnormality. .
[2017-10-07] MEDS: AMLODIPINE 10 MG TABLET PO SCH (10:08)
[2017-10-07] MEDS: ATENOLOL 50 MG TABLET PO SCH ×2 (10:08→20:28)
[2017-10-07] MEDS: ASPIRIN 81 MG CHEWABLE TABLET PO SCH (10:08)
[2017-10-07] MEDS: LOSARTAN 100 MG TABLET PO SCH (10:09)
[2017-10-07] MEDS ORDERED: CALCIUM CARBONATE Chewable 500mg TABLET PO PRN (12:22)
--- NOTE | 2017-10-07 17:15 | Internal Med Progress Note ---
Internal Medicine Subjective Patient seen and examined in her room. Family at the bedside. Questions answered. Her abdominal ultrasound was negative for gallbladder disease or splenic enlargement. Her lab this morning demonstrates a hyperchloremic non- gapped metabolic acidosis. She also indicates that she is tender in the epigastrium which is confirmed with palpation. She further states that she had multiple stools since yesterday that were not diarrhea but were black in color. She indicates that she doesn't have as much left chest/rib pain today. She still is not eating much and has not walked in today. Her white count but also her reticulocyte count are coming down slowly. Exam Vital Signs: Temperature 98.7 F 10/07/17 15:22 Pulse Rate 71 10/07/17 15:22 Respiratory Rate 20 10/07/17 15:22 Blood Pressure 131/68 10/07/17 15:22 Pulse Oximetry 98 10/07/17 15:22 Telemetry Rhythm: Sinus Rhythm Height/Weight/BMI: Height 5 ft Weight 61.5 kg Body Mass Index 30.7 - Constitutional Present: mild distress, obese, cooperative - Routine HEENT Exam Head: Present: normocephalic, atraumatic Eye: Present: EOMI, PERRL, conjunctivae pink. Absent: conjunctival icterus, scleral injection ENT: Present: mucous membranes moist, oropharynx clear, nares patent - Routine Neck Exam Present: supple. Absent: JVD, carotid bruit, lymphadenopathy, thyromegaly - Routine Chest/Breast/Axilla Exam Chest wall: Present: tenderness (left lower chest) Axillae: Absent: lymphadenopathy - Routine Respiratory Exam Present: CTA bilaterally. Absent: accessory muscle use - Routine Cardiovascular Exam Present: RRR, no murmur. Absent: S3, S4 - Routine Abdominal Exam Present: soft, normoactive bowel sounds, tenderness (epigastrium) - Routine Extremities Exam Absent: cyanosis, clubbing, edema - Routine Back/Spine/Pelvis Exam Back/Spine: Present: vertebral tenderness. Absent: CVA tenderness - Routine Skin Exam Present: intact. Absent: cyanosis, mottling, petechiae, urticaria, jaundice - Routine Neurological Exam Present: alert, oriented X3, CN II-XII intact - Routine Psychiatric Exam Present: normal affect, cooperative, good insight, good judgment, depressed Internal Medicine Results - Labs CBC & Chem 7: 10/07/17 04:32 10/07/17 07:09 Labs: Short CBC 10/07/17 Range/Units 04:32 WBC 15.5 H (4.5-11.0) T/MM3 Hgb 11.2 L (12-16) GM/DL Hct 33.3 L (36-46) % Plt Count 266 (130-400) T/MM3 BMP 10/07/17 10/07/17 04:32 07:09 Sodium Cancelled 139 Potassium Cancelled 3.9 Chloride Cancelled 109 H Carbon Dioxide Cancelled 21 L BUN Cancelled 15.0 Creatinine Cancelled 0.8 Glucose Cancelled 114 H Calcium Cancelled 8.8 Liver Function 10/07/17 10/07/17 Range/Units 04:32 07:09 Total Bilirubin Cancelled 0.50 AST Cancelled 26 ALT Cancelled 29 Alkaline Phosphatase Cancelled 85 D Albumin Cancelled 3.0 L - ABG Interpretation Interpretation: metabolic acidosis Progress Note-A&P - Time Spent With Patient Total time spent is greater than 50% in coordination of care (as documented) at patient's floor/unit and/or counseling patient: greater than 35 minutes (1) Dehydration Status: Resolved Current Visit: Yes (2) Febrile illness, acute Status: Acute Current Visit: Yes (3) Chest pain Status: Acute Current Visit: Yes (4) Weakness Status: Acute Current Visit: Yes (5) Hypertension Status: Acute Current Visit: Yes (6) Arthralgia Status: Acute Current Visit: Yes (7) Hypercalcemia Status: Resolved Current Visit: Yes (8) Rib pain on left side Status: Acute Current Visit: Yes (9) Right upper quadrant pain Status: Resolved Current Visit: Yes (10) Nausea & vomiting Status: Acute Current Visit: Yes (11) Unintentional weight loss of more than 10 pounds Status: Acute Current Visit: Yes (12) Epigastric pain Status: Acute Current Visit: Yes (13) Melena Status: Acute Current Visit: Yes - Assessment and Plan I have scheduled a EGD for the morning. I'll also recheck her CBC and renal function panel in the morning as well as a urine pH and K she still has the hyperchloremic non-gap metabolic acidosis. This would help elucidate whether or not she has renal tubular acidosis type 1,2, or 4. We will also Hemoccult the stool and encourage her to ambulate 3 times daily. Hospital Course Summary Disclaimer: The visit summary below is not to be considered part of the above Progress Note.
[2017-10-07] MEDS: CEFTRIAXONE 1 G in NS 100 ML IV SCH (18:13)
[2017-10-07] MEDS: LOVASTATIN 20 MG TABLET PO SCH (20:27)
[2017-10-07] MEDS: ZOLPIDEM 10 MG TABLET PO SCH (20:29)
[2017-10-08] MEDS: FentaNYL 100 MCG/2 ML INJECTION IVP PRN ×5 (01:08→21:45)
[2017-10-08] MEDS: NS 1,000 ML IV SCH ×4 (02:58→21:46)
[2017-10-08] MEDS ORDERED: FentaNYL 250 MCG/5 ML INJECTION ONE (06:39)
[2017-10-08] MEDS ORDERED: LIDOCAINE VISCOUS 2% ORAL LIQUID 15ml ONE (06:40)
[2017-10-08] MEDS ORDERED: MIDAZOLAM 5mg/5ml INJECTION ONE (06:42)
[2017-10-08] MEDS ORDERED: BENZOCAINE 20% SPRAY 0.5 ML ONE (06:55)
[2017-10-08] MEDS ORDERED: LIDOCAINE VISCOUS 2% ORAL LIQUID 15ml PO ONE (07:44)
[2017-10-08] MEDS ORDERED: BENZOCAINE 20% SPRAY 0.5 ML MM ONE (07:49)
[2017-10-08] MEDS ORDERED: MIDAZOLAM 5mg/5ml INJECTION IVP ONE ×3 (07:54→08:08)
[2017-10-08] MEDS ORDERED: FentaNYL 250 MCG/5 ML INJECTION IVP ONE ×3 (07:55→08:08)
[2017-10-08] MEDS: AMLODIPINE 10 MG TABLET PO SCH (09:35)
[2017-10-08] MEDS: ASPIRIN 81 MG CHEWABLE TABLET PO SCH (09:35)
[2017-10-08] MEDS: ATENOLOL 50 MG TABLET PO SCH ×2 (09:35→20:16)
[2017-10-08] MEDS: LOSARTAN 100 MG TABLET PO SCH (09:35)
[2017-10-08] MEDS ORDERED: PHOSPHORUS 250 MG TABLET PO SCH (12:00)
--- NOTE | 2017-10-08 12:17 | Operative Note ---
DATE OF OPERATION 10/08/2017 INDICATION Epigastric pain and weight loss and melena. OPERATION Esophagogastroduodenoscopy. SURGEON Gurjit Villafana D.O. ASA CLASSIFICATION III Consent was signed and on the chart. Routine monitoring with ECG, continuous oximetry and noninvasive blood pressure was performed throughout the procedure and found to be within normal limits. IV sedation was performed with 5 mg of Versed and 50 mcg Fentanyl. Prior to the procedure, the patient was brought to the endoscopy lab where a brief review of her medical history and physical exam was performed. The procedure was described to her and she was agreeable to continue. All questions were answered. DESCRIPTION OF OPERATION She was sprayed with a topical anesthetic to the posterior pharynx, given IV sedation and placed in the left lateral decubitus position. The endoscope was advanced into the posterior pharynx without difficulty. Visualization of her vocal cords was normal. The endoscope was advanced into the esophagus and down into the stomach. Upon entering the stomach, retained gastric contents were noted. The endoscope was advanced to the antrum, through the pylorus, immediately noting a large necrotic mass causing significant obstruction. I was able to pass the scope beyond the mass. Distal to the mass, the ampulla was identified and it appeared normal. Photograph taken. The endoscope was advanced beyond that and again there was no other abnormality in the mucosa. The endoscope was then brought back to the mass and biopsied multiple times. Scope was brought back into the stomach, retroflexed. There was no appreciable hiatal hernia. The stomach was decompressed and the endoscope brought back to the GE junction, noting reflux esophagitis LA classification A. The remainder of her esophagus was free of pathology. She tolerated the procedure well. There were no complications. IMPRESSION 1. 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 Multiple biopsies obtained. 2. Reflux esophagitis LA classification A. 3. Retained gastric contents. RECOMMENDATIONS 1. Await the path report. 2. CEA level. 3. Oncology and surgical consults. 4. Consideration for IV nutrition. MTDD
[2017-10-08] MEDS: MULTI VIT INFUSION IV SCH (17:49)
[2017-10-08] MEDS: MULTI TRACE ELEMENTS IV SCH (17:49)
[2017-10-08] MEDS: [UNRECOGNIZED DRUG - OTHER] IV SCH (17:49)
[2017-10-08] MEDS: ZOLPIDEM 10 MG TABLET PO SCH (20:15)
[2017-10-08] MEDS: PANTOPRAZOLE 40 MG INJECTION IVP SCH (20:15)
[2017-10-08] MEDS: LOVASTATIN 20 MG TABLET PO SCH (20:15)
[2017-10-09] MEDS: FentaNYL 100 MCG/2 ML INJECTION IVP PRN ×2 (02:00→10:58)
[2017-10-09] MEDS: NS 1,000 ML IV SCH ×3 (02:04→15:54)
[2017-10-09] MEDS: ATENOLOL 50 MG TABLET PO SCH ×2 (09:01→21:13)
[2017-10-09] MEDS: LOSARTAN 100 MG TABLET PO SCH (09:01)
[2017-10-09] MEDS: AMLODIPINE 10 MG TABLET PO SCH (09:01)
[2017-10-09] MEDS: ASPIRIN 81 MG CHEWABLE TABLET PO SCH (09:01)
[2017-10-09] MEDS: PANTOPRAZOLE 40 MG INJECTION IVP SCH ×2 (09:02→21:11)
[2017-10-09] MEDS: SALINE FLUSH 10ml SYRINGE IV PRN ×2 (09:03→21:14)
[2017-10-09] MEDS ORDERED: PPN - PHARMACY CONSULT MC ONE (14:07)
--- NOTE | 2017-10-09 14:13 | Progress Note ---
- Date 10/09/17 Subjective: Makenna was seen with multiple family members at the bedside. She walked earlier today and became slightly short of breath but is not dyspneic at rest. She denied emesis overnight but has had mild nausea. She was able to tolerate a small amount of breakfast. She continues to have some black stools and discomfort in the left abdomen. She denies fevers or chills. Appetite remains poor. Complains of back pain requiring IV narcotics, uses tramadol at home and has tolerated Hunters previously. Objective Vital signs: Temperature 96.3 F L 10/09/17 07:21 Pulse Rate 74 10/09/17 07:21 Respiratory Rate 18 10/09/17 04:19 Blood Pressure 126/68 10/09/17 07:21 Pulse Oximetry 98 10/09/17 07:21 I/O 1684/2100 NAD, alert Conjunctiva clear, oropharynx clear Respirations nonlabored, good airflow, breath sounds clear Regular rhythm, S1-S2 Abdomen soft, nontender, bowel sounds present although diminished Trace edema bilateral ankles Speech fluent, moving upper extremities symmetrically, cooperative Height/Weight/BMI: Height 1.52 m Weight 72.3 kg Body Mass Index 30.7 Results - Labs CBC & Chem 7: 10/09/17 04:17 10/09/17 04:17 Labs: Phosphorus 2.6, magnesium 2.3, albumin 2.7, pre-albumin 17.5 Assessment and Plan Assessment and Plan: Impression: Duodenal mass, necrotic Weight loss Dehydration Febrile illness, resolved Hypercalcemia, improved Left rib pain Hypertension Malnutrition Generalized weakness Nausea/vomiting Leukocytosis Anemia, normocytic Back pain Plan: Continue nutritional support with PPN, add lipids for calories. Oral intake as tolerates. Black stool reported yesterday following biopsies; repeat hemoglobin this afternoon. Hemoglobin down approximately 2 g/dL overnight. Continues to have moderate back and side pain, add oral pain medication as alternative to fentanyl-has tolerated Hunters in the past. Resume tizanidine or tramadol for back pain as well. Antibiotics discontinued yesterday, remains afebrile and white count improving progressively. Discussed with pharmacy and nursing. DVT Prophylaxis: SCD's GI Prophylaxis: Protonix Resuscitation Status: Full Code - Physician Narrative Narrative: Date: 10/09/17 Time: 1410 Hospital Course Summary Disclaimer: The visit summary below is not to be considered part of the above Progress Note.
[2017-10-09] MEDS ORDERED: TRAMADOL 50 MG TABLET PO PRN (14:23)
--- NOTE | 2017-10-09 15:22 | Pharmacy Consult-TPN/PPN ---
Pharmacy Consult-TPN/PPN - Laboratory Information Chemistry Turbidity < 20 (0-20) 10/09/17 04:17 Sodium 136 MEQ/L (134-144) 10/09/17 04:17 Potassium 3.7 MEQ/L (3.6-5) 10/09/17 04:17 Chloride 106 MEQ/L (98-107) 10/09/17 04:17 Carbon Dioxide 20 MEQ/L (22-30) L 10/09/17 04:17 Anion Gap 10 MEQ/L (5-15) 10/09/17 04:17 BUN 22.0 MG/DL (7-17) H D 10/09/17 04:17 Creatinine 0.7 mg/dL (0.7-1.2) 10/09/17 04:17 GFR Calculation 82 10/09/17 04:17 BUN/Creatinine Ratio 31 RATIO (6-26) H 10/09/17 04:17 Glucose 121 MG/DL (65-110) H 10/09/17 04:17 Calculated Osmolality 266 MOSM/KG (261-280) 10/09/17 04:17 Calcium 8.7 MG/DL (8.4-10.2) 10/09/17 04:17 Phosphorus 2.6 MG/DL (2.5-4.5) 10/09/17 04:17 Magnesium 2.3 MG/DL (1.6-2.3) 10/09/17 04:17 Total Bilirubin 0.50 MG/DL (0.20-1.30) 10/07/17 07:09 Conjugated Bilirubin 0.00 mg/dL (0.00-0.30) 10/07/17 07:09 Unconjugated Bilirubin 0.00 mg/dL (0.00-1.1) 10/07/17 07:09 Icterus Index < 2 (0-7) 10/09/17 04:17 AST 26 U/L (14-36) 10/07/17 07:09 ALT 29 U/L (1-35) 10/07/17 07:09 Alkaline Phosphatase 85 U/L (38-126) D 10/07/17 07:09 Total Creatine Kinase < 20 U/L (30-135) L 10/05/17 15:10 Troponin I < 0.012 ng/ml (0-0.12) 10/05/17 15:10 Total Protein 5.6 g/dL (6.3-8.2) L 10/07/17 07:09 Albumin 2.7 g/dL (3.5-5.0) L 10/09/17 04:17 Globulin 2.6 G/DL (2.4-3.6) 10/07/17 07:09 Albumin/Globulin Ratio 1.2 RATIO (1.1-2.2) 10/07/17 07:09 Prealbumin 17.5 mg/dL (17.6-36.0) L 10/09/17 04:17 Plasma Lactate 1.5 MMOL/L (0.6-2.2) 10/05/17 18:48 Carcinoembryonic Ag 2.27 UG/L (0-3.0) 10/08/17 10:36 CA 19-9 Antigen 12 U/mL (0-37) 10/08/17 04:27 PTH Intact 88.4 PG/ML (38.2-70.7) H 10/06/17 04:00 Specimen Hemolysis < 15 (0-25) 10/09/17 04:17 Intake and Output 10/08/17 10/09/17 10/10/17 06:59 06:59 06:59 Intake Total 3741.25 / 3741.25 1683.750 / 5010.241 7078.5455 / 2355.5455 Output Total 3990 / 3990 2100 / 2100 800 / 800 Balance -248.75 / -248.75 -416.250 / -784.318 7998.5455 / 1555.5455 Weight 61.5 kg 70.6 kg 72.3 kg Intake: IV 3241.25 / 3241.25 1283.750 / 7427.327 4390.5455 / 55 Ceftriaxone 1 g In Ns 100 ml @ 100 / 100 200 mls/hr IV Q24H [facility] Rx#: [id number] Multi-Vit Infusion 10 ml Multi / -Trace Elements 1 ml POTASSIUM PHOSPHATE (mEq) 20 meq In Ppn - Standard Formula 2,000 ml @ 110 mls/hr IV Q24H [facility] Rx#: [id number] Ns 1,000 ml @ 125 mls/hr IV . 3141.25 / 3141.25 1283.750 / 1283.750 0 / 0 Q8H [facility] Rx#:[id number] Oral 500 / 500 400 / 400 340 / 340 Output: Urine 3990 / 3990 2100 / 2100 800 / 800 Other: Urine Appearance Clear Clear Urine Color Yellow Pale Straw Yellow Urine Odor Normal Normal Normal Stool Color Brown Black Stool Consistency Soft Formed Formed Size of Bowel Movement Large Moderate # Voids 1 # Bowel Movements 1 1 - Consult Information PPN consult per pharmacy noted by Dr Chan. Cyclic PPN. Phosphate trending up but still slightly low so will leave extra KPhos in PPN today. Also added lipid emulsion 20% 500ml which will add an extra 1000 kcal per day. Will continue to monitor. Thank you.
[2017-10-09] MEDS ORDERED: NS FLUSH BAG 500ml IV PRN (16:47)
[2017-10-09] MEDS: FAT EMULSION 20% 500 ML IV SCH (17:22)
[2017-10-09] MEDS: MULTI VIT INFUSION IV SCH (17:23)
[2017-10-09] MEDS: [UNRECOGNIZED DRUG - OTHER] IV SCH (17:23)
[2017-10-09] MEDS: MULTI TRACE ELEMENTS IV SCH (17:23)
[2017-10-09] MEDS: ZOLPIDEM 10 MG TABLET PO SCH (21:13)
[2017-10-09] MEDS: HYDROCODONE/APAP 7.5 MG/325 MG TABLET PO PRN (21:13)
[2017-10-09] MEDS: LOVASTATIN 20 MG TABLET PO SCH (21:44)
[2017-10-10] MEDS: SALINE FLUSH 10ml SYRINGE IV PRN ×4 (04:11→21:36)
[2017-10-10] MEDS: NS 1,000 ML IV SCH ×3 (04:13→15:01)
[2017-10-10] MEDS: HYDROCODONE/APAP 7.5 MG/325 MG TABLET PO PRN ×3 (05:39→19:50)
--- NOTE | 2017-10-10 08:08 | Pharmacy Consult-TPN/PPN ---
Pharmacy Consult-TPN/PPN - Laboratory Information Chemistry Turbidity 125 (0-20) H 10/10/17 04:04 Sodium 134 MEQ/L (134-144) 10/10/17 04:04 Potassium 3.7 MEQ/L (3.6-5) 10/10/17 04:04 Chloride 110 MEQ/L (98-107) H 10/10/17 04:04 Carbon Dioxide 16 MEQ/L (22-30) L 10/10/17 04:04 Anion Gap 8 MEQ/L (5-15) 10/10/17 04:04 BUN 30.0 MG/DL (7-17) H 10/10/17 04:04 Creatinine 0.8 mg/dL (0.7-1.2) 10/10/17 04:04 GFR Calculation 70 10/10/17 04:04 BUN/Creatinine Ratio 38 RATIO (6-26) H 10/10/17 04:04 Glucose 127 MG/DL (65-110) H 10/10/17 04:04 Calculated Osmolality 266 MOSM/KG (261-280) 10/10/17 04:04 Calcium 8.2 MG/DL (8.4-10.2) L 10/10/17 04:04 Phosphorus 3.7 MG/DL (2.5-4.5) 10/10/17 04:04 Magnesium 2.3 MG/DL (1.6-2.3) 10/10/17 04:04 Total Bilirubin 0.50 MG/DL (0.20-1.30) 10/07/17 07:09 Conjugated Bilirubin 0.00 mg/dL (0.00-0.30) 10/07/17 07:09 Unconjugated Bilirubin 0.00 mg/dL (0.00-1.1) 10/07/17 07:09 Icterus Index < 2 (0-7) 10/10/17 04:04 AST 26 U/L (14-36) 10/07/17 07:09 ALT 29 U/L (1-35) 10/07/17 07:09 Alkaline Phosphatase 85 U/L (38-126) D 10/07/17 07:09 Total Creatine Kinase < 20 U/L (30-135) L 10/05/17 15:10 Troponin I < 0.012 ng/ml (0-0.12) 10/05/17 15:10 Total Protein 5.6 g/dL (6.3-8.2) L 10/07/17 07:09 Albumin 2.2 g/dL (3.5-5.0) L 10/10/17 04:04 Globulin 2.6 G/DL (2.4-3.6) 10/07/17 07:09 Albumin/Globulin Ratio 1.2 RATIO (1.1-2.2) 10/07/17 07:09 Prealbumin 17.5 mg/dL (17.6-36.0) L 10/09/17 04:17 Plasma Lactate 1.5 MMOL/L (0.6-2.2) 10/05/17 18:48 Carcinoembryonic Ag 2.27 UG/L (0-3.0) 10/08/17 10:36 CA 19-9 Antigen 12 U/mL (0-37) 10/08/17 04:27 PTH Intact 88.4 PG/ML (38.2-70.7) H 10/06/17 04:00 Specimen Hemolysis 30 (0-25) H 10/10/17 04:04 Intake and Output 10/09/17 10/10/17 10/11/17 06:59 06:59 06:59 Intake Total 1683.750 / 7240.191 1454.5455 / 3255.5455 500 / 500 Output Total 2100 / 2100 1780 / 1780 200 / 200 Balance -416.250 / -541.797 7583.5455 / 1475.5455 300 / 300 Weight 70.6 kg 72.3 kg Intake: IV 1283.750 / 2948.166 2534.5455 / 2915.5455 500 / 500 Fat Emulsion 20% 500 ml @ 50 500 / 500 mls/hr IV 1800 [facility] Rx#: [id number] Multi-Vit Infusion 10 ml Multi 2014.5455 / 2014.5455 -Trace Elements 1 ml POTASSIUM PHOSPHATE (mEq) 20 meq In Ppn - Standard Formula 2,000 ml @ 110 mls/hr IV Q24H [facility] Rx#: [id number] NS 500ml 500 ml @ 250 mls/hr IV 500 / 500 .Q2H ONE Rx#:[id number] Ns 1,000 ml @ 125 mls/hr IV . 1283.750 / 1283.750 400 / 400 Q8H [facility] Rx#:[id number] Oral 400 / 400 340 / 340 Output: Urine 2100 / 2100 1780 / 1780 200 / 200 Other: Urine Appearance Clear Clear Clear Urine Color Pale Yellow Yellow Yellow Urine Odor Normal Normal Normal Stool Color Black Stool Consistency Formed Size of Bowel Movement Moderate # Bowel Movements 1 - Consult Information Will change to a custom PPN bag today at 1800. Will remove chloride and change to acetate salts. Will continue to monitor and adjust accordingly. Thank you.
[2017-10-10] MEDS: PANTOPRAZOLE 40 MG INJECTION IVP SCH ×2 (08:32→20:56)
[2017-10-10] MEDS: LOSARTAN 100 MG TABLET PO SCH (08:33)
[2017-10-10] MEDS: ASPIRIN 81 MG CHEWABLE TABLET PO SCH (08:34)
[2017-10-10] MEDS: ATENOLOL 50 MG TABLET PO SCH ×2 (11:12→21:30)
--- NOTE | 2017-10-10 15:04 | Progress Note ---
- Date 10/10/17 Subjective: Dr. Carmona covering for Dr. Villafana Patient is a pleasant 72-year-old female who was seen accompanied by her daughter and . She states she continues to feel weak. She stated she felt stronger last night after the blood transfusion but now feels weak again. She was able to walk today in the hallways and denied any lightheadedness, shortness of breath, or chest discomfort. She did feel weak when she was walking and wanted somebody beside her in case she fell. She has not had a bowel movement today. She is urinating frequently with the IV fluids. She has some intermittent left mid back pain and chest discomfort below her left breast. She feels like they come on at the same time and have been present off and on for the past 6 weeks. During that time she's had poor appetite. She denies history of heart disease. Appetite remains poor and she is currently on ice chips. Hemoglobin fell to 7.7 last night and she received 1 unit of blood. Hemoglobin last night was 9.3, this morning was 8.8, and on recheck was 10.0. She did have some hypotension overnight and blood pressure at 4 AM was 83/39. Currently blood pressure is 104/64 with heart rate of 72 and O2 sat of 94% on room air. I did hold all of her blood pressure medications this morning due to borderline hypotension. Objective Vital signs: Temperature 97.3 F 10/10/17 08:00 Pulse Rate 67 10/10/17 08:00 Respiratory Rate 16 10/10/17 08:00 Blood Pressure 104/55 10/10/17 08:00 Pulse Oximetry 96 10/10/17 08:00 Height/Weight/BMI: Height 1.52 m Weight 72.2 kg Body Mass Index 30.7 Comments: Current blood pressure 104/64, heart rate 72, O2 sat 94% GEN-alert, oriented, no acute distress HEENT-sclera anicteric, oropharynx is moist NECK-supple CV-regular rate and rhythm CHEST-clear to auscultation bilaterally ABD-soft, nontender with positive bowel sounds -no Billingsley EXT-no edema, SCDs are on NEURO-no focal deficits SKIN-warm and dry Results - Labs CBC & Chem 7: 10/10/17 10:10 10/10/17 04:04 Microbiology Results: Microbiology 10/05/17 15:09 Peripheral/Iv Start Gram Stain - Final Not performed 10/05/17 15:09 Peripheral/Iv Start Blood Culture - Preliminary No Growth After 3 Days 10/05/17 15:19 Peripheral/Iv Start Gram Stain - Final Not performed 10/05/17 15:19 Peripheral/Iv Start Blood Culture - Preliminary No Growth After 3 Days Assessment and Plan Assessment and Plan: Impression: Duodenal mass, necrotic Acute blood loss anemia Hypotension -hydrochlorothiazide, Cozaar and amlodipine were placed on hold. Atenolol was held this morning. Weight loss Dehydration-resolved Febrile illness, resolved Hypercalcemia, improved Left rib pain Hypertension Malnutrition Generalized weakness Nausea/vomiting Leukocytosis Anemia, normocytic Back pain Plan: Aspirin was placed on hold due to GI bleed. Antihypertensives were placed on hold due to borderline hypotension this morning. We'll decide on atenolol this evening depending upon blood pressure and heart rate. The patient received 1 unit of blood last night and hemoglobin improved from 7.7 -8.8 this morning. And recheck hemoglobin was 10. Will recheck at 4 PM today. The patient denies any stools today. Back pain is controlled with current medications. Continue nutritional support with PPN, add lipids for calories. Currently on ice chips. Can advance to clear liquids if hemoglobin is stable at 4 PM. Repeat CBC and renal panel tomorrow. Discussed with patient, patient's family and nursing. DVT Prophylaxis: SCD's GI Prophylaxis: Protonix Resuscitation Status: Full Code - Time spent with patient Time with patient PN: 35 minutes - Physician Narrative Physician: Amy Carmona MD Narrative: Date: 10/10/17 Time: 1500 Hospital Course Summary Disclaimer: The visit summary below is not to be considered part of the above Progress Note.
[2017-10-10] MEDS: POTASSIUM PHOSPHATE IV SCH (17:45)
[2017-10-10] MEDS: [UNRECOGNIZED DRUG - OTHER] IV SCH (17:45)
[2017-10-10] MEDS: SODIUM ACETATE IV SCH (17:45)
[2017-10-10] MEDS: FAT EMULSION 20% 500 ML IV SCH (17:46)
[2017-10-10] MEDS: ZOLPIDEM 10 MG TABLET PO SCH (20:56)
[2017-10-10] MEDS: LOVASTATIN 20 MG TABLET PO SCH (20:56)
[2017-10-10] MEDS: FentaNYL 100 MCG/2 ML INJECTION IVP PRN (21:36)
[2017-10-11] MEDS: HYDROCODONE/APAP 7.5 MG/325 MG TABLET PO PRN ×3 (03:00→21:13)
[2017-10-11] MEDS: NS 1,000 ML IV SCH ×4 (04:05→16:06)
[2017-10-11] MEDS: SALINE FLUSH 10ml SYRINGE IV PRN ×2 (08:32→10:39)
[2017-10-11] MEDS: ATENOLOL 50 MG TABLET PO SCH ×3 (08:32→21:16)
[2017-10-11] MEDS: PANTOPRAZOLE 40 MG INJECTION IVP SCH ×2 (08:32→20:10)
--- NOTE | 2017-10-11 08:53 | Pharmacy Consult-TPN/PPN ---
Pharmacy Consult-TPN/PPN - Laboratory Information Chemistry Turbidity 36 (0-20) H 10/11/17 03:57 Sodium 136 MEQ/L (134-144) 10/11/17 03:57 Potassium 4.2 MEQ/L (3.6-5) 10/11/17 03:57 Chloride 106 MEQ/L (98-107) 10/11/17 03:57 Carbon Dioxide 20 MEQ/L (22-30) L 10/11/17 03:57 Anion Gap 10 MEQ/L (5-15) 10/11/17 03:57 BUN 21.0 MG/DL (7-17) H 10/11/17 03:57 Creatinine 0.7 mg/dL (0.7-1.2) 10/11/17 03:57 GFR Calculation 82 10/11/17 03:57 BUN/Creatinine Ratio 30 RATIO (6-26) H 10/11/17 03:57 Glucose 128 MG/DL (65-110) H 10/11/17 03:57 Calculated Osmolality 267 MOSM/KG (261-280) 10/11/17 03:57 Calcium 8.9 MG/DL (8.4-10.2) D 10/11/17 03:57 Phosphorus 2.3 MG/DL (2.5-4.5) L 10/11/17 03:57 Magnesium 2.4 MG/DL (1.6-2.3) H 10/11/17 03:57 Total Bilirubin 0.50 MG/DL (0.20-1.30) 10/07/17 07:09 Conjugated Bilirubin 0.00 mg/dL (0.00-0.30) 10/07/17 07:09 Unconjugated Bilirubin 0.00 mg/dL (0.00-1.1) 10/07/17 07:09 Icterus Index < 2 (0-7) 10/11/17 03:57 AST 26 U/L (14-36) 10/07/17 07:09 ALT 29 U/L (1-35) 10/07/17 07:09 Alkaline Phosphatase 85 U/L (38-126) D 10/07/17 07:09 Total Creatine Kinase < 20 U/L (30-135) L 10/05/17 15:10 Troponin I < 0.012 ng/ml (0-0.12) 10/05/17 15:10 Total Protein 5.6 g/dL (6.3-8.2) L 10/07/17 07:09 Albumin 2.9 g/dL (3.5-5.0) L 10/11/17 03:57 Globulin 2.6 G/DL (2.4-3.6) 10/07/17 07:09 Albumin/Globulin Ratio 1.2 RATIO (1.1-2.2) 10/07/17 07:09 Prealbumin 17.5 mg/dL (17.6-36.0) L 10/09/17 04:17 Plasma Lactate 1.5 MMOL/L (0.6-2.2) 10/05/17 18:48 Carcinoembryonic Ag 2.27 UG/L (0-3.0) 10/08/17 10:36 CA 19-9 Antigen 12 U/mL (0-37) 10/08/17 04:27 PTH Intact 88.4 PG/ML (38.2-70.7) H 10/06/17 04:00 Specimen Hemolysis 36 (0-25) H 10/11/17 03:57 - Consult Information Will continuet the PPN as currently ordered. TPN Consult, Clyde Chow, Pharmacist.
[2017-10-11 09:26] VITALS: BMI 31.1
[2017-10-11] MEDS: FLUCONAZOLE PB 400 MG/200 ML BAG IV SCH (10:36)
[2017-10-11] MEDS ORDERED: FAT EMULSION 20% 500 ML IV SCH (21:00)
[2017-10-11] MEDS: ZOLPIDEM 10 MG TABLET PO SCH (21:13)
[2017-10-11] MEDS: LOVASTATIN 20 MG TABLET PO SCH (21:17)
[2017-10-11] MEDS: [UNRECOGNIZED DRUG - OTHER] IV SCH (21:23)
[2017-10-11] MEDS: POTASSIUM PHOSPHATE IV SCH (21:23)
[2017-10-11] MEDS: SODIUM ACETATE IV SCH (21:23)
[2017-10-12 07:17] VITALS: RESP 16
[2017-10-12] MEDS: NS 1,000 ML IV SCH ×4 (08:04→17:44)
[2017-10-12] MEDS: ATENOLOL 50 MG TABLET PO SCH (09:06)
[2017-10-12] MEDS: PANTOPRAZOLE 40 MG INJECTION IVP SCH (09:07)
[2017-10-12] MEDS: FLUCONAZOLE PB 400 MG/200 ML BAG IV SCH (09:07)
--- NOTE | 2017-10-12 10:26 | Pharmacy Consult-TPN/PPN ---
Pharmacy Consult-TPN/PPN - Laboratory Information Chemistry Turbidity < 20 (0-20) 10/12/17 09:38 Sodium 137 MEQ/L (134-144) 10/12/17 09:38 Potassium 4.3 MEQ/L (3.6-5) 10/12/17 09:38 Chloride 103 MEQ/L (98-107) 10/12/17 09:38 Carbon Dioxide 25 MEQ/L (22-30) 10/12/17 09:38 Anion Gap 9 MEQ/L (5-15) 10/12/17 09:38 BUN 19.0 MG/DL (7-17) H 10/12/17 09:38 Creatinine 0.7 mg/dL (0.7-1.2) 10/12/17 09:38 GFR Calculation 82 10/12/17 09:38 BUN/Creatinine Ratio 27 RATIO (6-26) H 10/12/17 09:38 Glucose 114 MG/DL (65-110) H 10/12/17 09:38 Glucometer 125 mg/dL (65-110) 10/12/17 06:46 Calculated Osmolality 267 MOSM/KG (261-280) 10/12/17 09:38 Calcium 8.6 MG/DL (8.4-10.2) 10/12/17 09:38 Phosphorus 2.3 MG/DL (2.5-4.5) L 10/12/17 09:38 Magnesium 2.4 MG/DL (1.6-2.3) H 10/11/17 03:57 Total Bilirubin 0.50 MG/DL (0.20-1.30) 10/07/17 07:09 Conjugated Bilirubin 0.00 mg/dL (0.00-0.30) 10/07/17 07:09 Unconjugated Bilirubin 0.00 mg/dL (0.00-1.1) 10/07/17 07:09 Icterus Index < 2 (0-7) 10/12/17 09:38 AST 26 U/L (14-36) 10/07/17 07:09 ALT 29 U/L (1-35) 10/07/17 07:09 Alkaline Phosphatase 85 U/L (38-126) D 10/07/17 07:09 Total Creatine Kinase < 20 U/L (30-135) L 10/05/17 15:10 Troponin I < 0.012 ng/ml (0-0.12) 10/05/17 15:10 Total Protein 5.6 g/dL (6.3-8.2) L 10/07/17 07:09 Albumin 2.9 g/dL (3.5-5.0) L 10/11/17 03:57 Globulin 2.6 G/DL (2.4-3.6) 10/07/17 07:09 Albumin/Globulin Ratio 1.2 RATIO (1.1-2.2) 10/07/17 07:09 Prealbumin 17.5 mg/dL (17.6-36.0) L 10/09/17 04:17 Plasma Lactate 1.5 MMOL/L (0.6-2.2) 10/05/17 18:48 Carcinoembryonic Ag 2.27 UG/L (0-3.0) 10/08/17 10:36 CA 19-9 Antigen 12 U/mL (0-37) 10/08/17 04:27 PTH Intact 88.4 PG/ML (38.2-70.7) H 10/06/17 04:00 Specimen Hemolysis < 15 (0-25) 10/12/17 09:38 Intake and Output 10/11/17 10/12/17 10/13/17 06:59 06:59 06:59 Intake Total 3855.1285 / 3855.1285 3523.2579 / 3523.2579 500 / 500 Output Total 1300 / 1300 2325 / 2325 Balance 2555.1285 / 2555.1285 1198.2579 / 1198.2579 500 / 500 Weight 72.2 kg 72.4 kg 73 kg Intake: IV 3355.1285 / 3355.1285 3053.2579 / 3053.2579 500 / 500 Fat Emulsion 20% 500 ml @ 50 500 / 500 500 / 500 mls/hr IV 2100 [facility] Rx#: [id number] Fluconazole Pb 400 mg In 200 ml 200 / 200 @ 100 mls/hr IV Q24H [facility] Rx#: [id number] Multi-Vit Infusion 10 ml Multi 55 / 55 -Trace Elements 1 ml POTASSIUM PHOSPHATE (mEq) 20 meq In Ppn - Standard Formula 2,000 ml @ 110 mls/hr IV Q24H [facility] Rx#: [id number] NS 500ml 500 ml @ 250 mls/hr IV 500 / 500 .Q2H [facility] Rx#:[id number] Ns 1,000 ml @ 125 mls/hr IV . 339.583 / 339.583 729.167 / 729.167 Q8H [facility] Rx#:[id number] Sodium Acetate 100 meq 2124.0909 / 2124.0909 POTASSIUM PHOSPHATE (mEq) 40 meq Potassium Acetate Inj 60 meq Magnesium Sulfate Inj 16 meq Calcium Gluconate 9.3 meq Multi-Vit Infusion 10 ml Multi -Trace Elements 1 ml In Ppn - Custom Formula 2,000 ml @ 110 mls/hr IV Q24H [facility] Rx#: [id number] Oral 500 / 500 470 / 470 Output: Urine 1300 / 1300 2325 / 2325 Other: Urine Appearance Clear Clear Urine Color Yellow Straw Urine Odor Normal Normal # Voids 1 1 - Consult Information Will add some chloride to PPN bag today (start 1800). Changed 100meq sodium acetate to 50meq sodium acetate and 50 meq sodium chloride. Thank you.
[2017-10-12] MEDS: HYDROCODONE/APAP 7.5 MG/325 MG TABLET PO PRN (11:15)
[2017-10-12 11:18] VITALS: O2SAT 97
[2017-10-12 15:52] VITALS: BP 106/67; PULSE 73; TEMP 96.6
--- NOTE | 2017-10-12 17:25 | Discharge Summary ---
Discharge Information Date of admission: 10/07/17 13:21 Anticipated date of discharge: 10/12/17 Attending Physician: Gurjit Villafana DO Primary care physician: Gurjit Villafana DO Consults: 10/09/17 16:45 Physician Consult [CONS] Routine Consulting Provider: Jonathan Bran Reason For Exam: duodenal mass/melena Ordering Provider has Notified Learning Support Teacher: No Comment: call placed - Discharge Diagnosis (1) Duodenal bulb ulcer Status: Acute (2) Acute blood loss anemia Status: Acute (3) Dehydration Status: Resolved (4) Febrile illness, acute Status: Resolved (5) Chest pain Status: Resolved (6) Weakness Status: Acute (7) Hypertension Status: Acute (8) Arthralgia Status: Acute (9) Rib pain on left side Status: Acute (10) Right upper quadrant pain Status: Resolved (11) Nausea & vomiting Status: Acute (12) Unintentional weight loss of more than 10 pounds Status: Acute (13) Epigastric pain Status: Acute (14) Melena Status: Acute (15) Hypercalcemia Status: Resolved - Procedures Procedures: EGD with duodenal biopsy - Laboratory Labs: 10/11/17 03:57 10/12/17 09:38 - Microbiology Microbiology 10/05/17 15:19 Peripheral/Iv Start Blood Culture - Final No Growth After 5 Days 10/05/17 15:09 Peripheral/Iv Start Blood Culture - Final No Growth After 5 Days - Pathology Acute ulcerative duodenitis with fungal elements present. History of Present Illness HPI: Makenna Flynn is a pleasant 72-year-old white female patient that I am well familiar with from my office practice. Usually she has no trouble walking or conversing or doing any of her activities of daily living. Her most recent lab was drawn through our office demonstrated dehydration. She called this morning needing to be seen due to her fever as well as significant weakness and chest discomfort. At that time she was indeed found to be dehydrated and also we noted that her white count was significantly elevated. At that point it was decided that she would be a direct admit for 23 hour observation with IV fluid hydration, antibiotics, and septic workup. Hospital Course This is a general summary of the patient's hospital course. For more details refer to the complete medical record. Time spent with patient: greater than 35 minutes Resuscitation Status: Full Code Discharge Plan - Med Rec/Dispo Referrals/Follow Up: Gurjit Villafana DO [Family Provider] - 10/20/17 11:00 am Anya Instructions: Dehydration (GEN), Peptic Ulcer (GEN) Prescriptions: New Fluconazole [Diflucan 150 mg Tablet] 150 mg PO DAILY #7 tablet Continue Tizanidine HCl 1 tab PO BID #90 Tramadol Hcl (Ultram Er) 50 mg PO Q4-6H #0 Amlodipine Besylate 5 mg PO BID #0 Losartan Potassium 1 tab PO DAILY #30 Tenormin (atenolol) 100 mg tablet 100 mg PO BID tab - Disposition 01 Discharged Home, Self-Care - Dismissal Complete Discharge Instructions are:: Complete
[2017-10-12] MEDS ORDERED: NEOMYCIN/POLYMYXIN/BACITRACIN OINT PACKET TP ONE (17:46)
[2017-10-12] MEDS ORDERED: POTASSIUM PHOSPHATE IV SCH (18:00)
[2017-10-12] MEDS ORDERED: [UNRECOGNIZED DRUG - OTHER] IV SCH (18:00)
[2017-10-12] MEDS ORDERED: SODIUM ACETATE IV SCH (18:00)
[2017-10-12] MEDS ORDERED: POTASSIUM ACETATE IV SCH (18:00)
== END 2017-10-12 18:45 | disposition home or self-care (01) | DRG 641 ==
LOC: MED
PROVIDERS: ADMIT Internal Medicine; ATTEND Internal Medicine
PROC: END.EGD (2017-10-08 07:30)